=== PATIENT | female | born 1955 | race Caucasian/White ===

== ENCOUNTER 2016-10-15 18:51 | Inpatient (IN) | payer BC ==
[~2016-10-15] VITALS: Ht 172.7 cm; Wt 76.5 kg
[2016-10-15 10:45] VITALS: BP 131/81
[2016-10-15 19:17] LABS: Basophils # (auto) 0 uL; Basophils % (auto) 0.1 % (0.0-2.0); Eosinophils # (auto) 0.2 uL; Eosinophils % (auto) 2.5 % (0.0-7.0); Hemoglobin 13.4 g/dL (12.2-16.2); Lymphocytes # (auto) 1.2 uL; Lymphocytes % (auto) 14.9 % (10.0-50.0); Mean Corpuscular Hemoglobin 31.5 pg (28.0-32.0); Mean Corpuscular Hgb Conc. 34.4 g/dL (32.0-36.0); Mean Corpuscular Volume 91.6 fL (80.0-100.0); Mean Platelet Volume 9.6 fL (7.4-10.4); Monocytes # (auto) 0.8 uL; Monocytes % (auto) 9.5 % (0.0-12.0); Neutrophils # (auto) 5.8 uL; Platelet Count (auto) 257 10^3/uL (140-450); Red Cell Distribution Width 12.8 % (11.6-16.0); White Blood Cell 7.9 10^3/uL (4.4-10.8)
[2016-10-15 19:50] LABS: Albumin 3.7 g/dL (3.4-5.0); Alkaline Phosphatase 64 U/L (45-117); Anion Gap 8 (5-15); Aspartate Aminotransferase 18 U/L (15-37); BUN/Creatinine Ratio 23.5; Bilirubin, Total 0.4 mg/dL (0.2-1.0); Blood Urea Nitrogen 31 mg/dL (7-18); Calcium 9.1 mg/dL (8.5-10.1); Carbon Dioxide 30 mmol/L (21-32); Chloride 99 mmol/L (98-107); GFR African American 53 mL/min; GFR Non-African American 44 mL/min; Glucose 122 mg/dL (74-106); Magnesium 2.7 mg/dL (1.6-2.6); Sodium 137 mmol/L (136-145)
[2016-10-15] MEDS ORDERED: cloNIDine 0.2 mg/24hr 7DAY PATCH TD ONE (20:30)
[2016-10-15] MEDS ORDERED: MECLIZINE HCL 25 MG TAB PO ONE (20:45)
[2016-10-15] MEDS ORDERED: NITROGLYCERIN 0.4 MG SL TAB SL PRN (21:15)
[2016-10-15] MEDS ORDERED: MORPHINE SULF INJ 2 MG/ML SYRINGE 1ML IV PRN ×2 (21:15)
[2016-10-15] MEDS ORDERED: ONDANSETRON HCL 4 MG/2 ML VIAL IV PRN (21:15)
[2016-10-15] MEDS ORDERED: ACETAMINOPHEN 325 MG TAB PO PRN (21:15)
[2016-10-15] MEDS: SODIUM CHLORIDE 0.9% 1,000 ML IV SCH (21:44)
[2016-10-15 22:21] LABS: Urine Bilirubin Negative (Negative); Urine Color Yellow (Yellow); Urine Glucose Normal (Normal); Urine Hyaline Cast MOD /lpf (0 - 2); Urine Ketone Negative (Negative); Urine Mucus FEW (None Seen); Urine RBC 11 /hpf (0 - 4); Urine Squamous Epithelial Cell FEW /hpf (<5); Urine Urobilinogen Normal (Negative)
[2016-10-15 22:29] LABS: Urine Blood 1+ /uL (Negative); Urine Nitrite POSITIVE (Negative)
[2016-10-15 22:45] VITALS: BP 138/81
[2016-10-16] MEDS ORDERED: ASP81EC PO (00:03)
[2016-10-16] MEDS ORDERED: SIMV-8 PO (00:03)
[2016-10-16] MEDS ORDERED: METF-370 PO (00:03)
[2016-10-16] MEDS ORDERED: METO25TA5 PO (00:03)
[2016-10-16 05:00] VITALS: BP 128/70
[2016-10-16 07:09] LABS: Basophils # (auto) 0 uL; Basophils % (auto) 0.5 % (0.0-2.0); Eosinophils # (auto) 0.2 uL; Eosinophils % (auto) 3.1 % (0.0-7.0); Hemoglobin 12.9 g/dL (12.2-16.2); Lymphocytes # (auto) 1.6 uL; Mean Corpuscular Hemoglobin 31.7 pg (28.0-32.0); Mean Corpuscular Hgb Conc. 34.8 g/dL (32.0-36.0); Mean Corpuscular Volume 91.1 fL (80.0-100.0); Mean Platelet Volume 9.9 fL (7.4-10.4); Monocytes # (auto) 0.7 uL; Monocytes % (auto) 12.1 % (0.0-12.0); Neutrophils # (auto) 3.3 uL; Neutrophils % (auto) 56.3 % (37.0-80.0); Platelet Count (auto) 217 10^3/uL (140-450); Red Cell Distribution Width 12.8 % (11.6-16.0); White Blood Cell 5.9 10^3/uL (4.4-10.8)
[2016-10-16 09:00] VITALS: BP 136/61
[2016-10-16] MEDS ORDERED: BUPR-60 PO (10:32)
[2016-10-16] MEDS ORDERED: TRIATAB3 PO (10:32)
[2016-10-16] MEDS ORDERED: LOSA50TA6 PO (10:32)
[2016-10-16] MEDS ORDERED: CLOP75TA41 PO (10:32)
[2016-10-16 13:00] VITALS: BP 125/74
[2016-10-16] MEDS ORDERED: ASPirin 81 mg TAB PO ONE (13:00)
[2016-10-16] MEDS ORDERED: cefTRIAXone 1GM/50ML D5W 50 ML IV ONE (13:00)
[2016-10-16] MEDS ORDERED: CLOPIDOGREL BISULFATE 75 MG TAB PO ONE (13:00)
[2016-10-16] MEDS: METOPROLOL TARTRATE 25 MG TAB PO SCH ×2 (13:15→21:58)
[2016-10-16] MEDS: SODIUM CHLORIDE 0.9% 1,000 ML IV SCH (14:18)
[2016-10-16 17:00] VITALS: BP 135/63
[2016-10-16] MEDS: buPROPion HCL 75 MG TAB PO SCH (18:11)
[2016-10-16 20:00] VITALS: BP 137/67
[2016-10-16] MEDS: ATORVASTATIN 20 MG TAB PO SCH (21:57)
[2016-10-16 22:00] VITALS: BP 137/67
[2016-10-17 05:00] VITALS: BP 137/61
[2016-10-17 06:34] LABS: Basophils # (auto) 0 uL; Basophils % (auto) 0.7 % (0.0-2.0); Eosinophils # (auto) 0.3 uL; Eosinophils % (auto) 4.4 % (0.0-7.0); Hematocrit 36.2 % (36.0-46.0); Hemoglobin 12.3 g/dL (12.2-16.2); Lymphocytes # (auto) 1.8 uL; Lymphocytes % (auto) 29.5 % (10.0-50.0); Mean Corpuscular Hemoglobin 31.6 pg (28.0-32.0); Mean Corpuscular Hgb Conc. 34.1 g/dL (32.0-36.0); Mean Corpuscular Volume 92.8 fL (80.0-100.0); Mean Platelet Volume 10.2 fL (7.4-10.4); Monocytes # (auto) 0.5 uL; Monocytes % (auto) 8.5 % (0.0-12.0); Neutrophils # (auto) 3.5 uL; Neutrophils % (auto) 56.9 % (37.0-80.0); Platelet Count (auto) 214 10^3/uL (140-450); Red Cell Distribution Width 12.9 % (11.6-16.0); White Blood Cell 6.2 10^3/uL (4.4-10.8)
[2016-10-17] MEDS: buPROPion HCL 75 MG TAB PO SCH ×2 (06:35→18:18)
[2016-10-17] MEDS: SODIUM CHLORIDE 0.9% 1,000 ML IV SCH ×2 (06:38→23:27)
[2016-10-17 07:17] LABS: BUN/Creatinine Ratio 20.5; Calcium 9.6 mg/dL (8.5-10.1); Potassium 4.1 mmol/L (3.5-5.1)
[2016-10-17] MEDS ORDERED: ADENOSINE 62 MG in GIVE UN-DILUTED 0 ML IV ONE (08:15)
[2016-10-17 09:00] VITALS: BP 153/80
[2016-10-17] MEDS: cefTRIAXone 1GM/50ML D5W 50 ML IV SCH (10:21)
[2016-10-17] MEDS: ASPirin 81 mg TAB PO SCH (10:22)
[2016-10-17] MEDS: CLOPIDOGREL BISULFATE 75 MG TAB PO SCH (10:22)
[2016-10-17] MEDS: METOPROLOL TARTRATE 25 MG TAB PO SCH ×2 (10:22→22:01)
[2016-10-17 17:00] VITALS: BP 149/83
[2016-10-17 21:30] VITALS: BP 154/79
[2016-10-17] MEDS: ATORVASTATIN 20 MG TAB PO SCH (22:00)
[2016-10-18 05:00] VITALS: BP 167/74
[2016-10-18] MEDS: buPROPion HCL 75 MG TAB PO SCH (06:21)
[2016-10-18 06:38] LABS: BUN/Creatinine Ratio 20.2; Calcium 8.8 mg/dL (8.5-10.1); Potassium 3.9 mmol/L (3.5-5.1)
[2016-10-18 09:00] VITALS: BP 112/79
[2016-10-18] MEDS: cefTRIAXone 1GM/50ML D5W 50 ML IV SCH (10:15)
[2016-10-18] MEDS: METOPROLOL TARTRATE 25 MG TAB PO SCH (10:16)
[2016-10-18] MEDS: CLOPIDOGREL BISULFATE 75 MG TAB PO SCH (10:16)
[2016-10-18] MEDS: ASPirin 81 mg TAB PO SCH (10:16)
[2016-10-18 12:59] VITALS: BP 145/75
[2016-10-18 15:29] VITALS: BP 145/75
[2016-10-18] MEDS: SODIUM CHLORIDE 0.9% 1,000 ML IV SCH (15:54)
== END 2016-10-18 17:30 | disposition home or self-care (01) | DRG 641 ==
LOC: EDBD 18:51 → ER 18:57 → TELE 18:58 → TELE-WESTW 21:52
PROVIDERS: ADMIT Emergency Medicine; ATTEND Internal Medicine
DX: E86.0 Dehydration (principal); N39.0 Urinary tract infection, site not specified; E83.41 Hypermagnesemia; I25.10 Atherosclerotic heart disease of native coronary artery without angina pectoris; I95.9 Hypotension, unspecified; E78.00 Pure hypercholesterolemia, unspecified; B96.20 Unspecified Escherichia coli [E. coli] as the cause of diseases classified elsewhere; I10 Essential (primary) hypertension; E11.51 Type 2 diabetes mellitus with diabetic peripheral angiopathy without gangrene; Z77.22 Contact with and (suspected) exposure to environmental tobacco smoke (acute) (chronic); E78.5 Hyperlipidemia, unspecified; Z86.73 Personal history of transient ischemic attack (TIA), and cerebral infarction without residual deficits; Z80.0 Family history of malignant neoplasm of digestive organs; Z82.49 Family history of ischemic heart disease and other diseases of the circulatory system; Z98.51 Tubal ligation status; Z95.5 Presence of coronary angioplasty implant and graft
CPT/HCPCS: 36415; 70450; 71020; 78452; 80048; 80053; 81001; 83036; 83735; 84484; 85025; 87086; 87088; 87186; 93005; 93017; 93306; 94761; J0153; J0696

== ENCOUNTER 2017-10-09 14:02 | Inpatient (IN) | payer BC ==
[~2017-10-09] VITALS: Ht 172.7 cm; Wt 75.9 kg
[~2017-10-09 14:02] MED LIST: ASP81EC PO; BUPR-60 PO; CLOP75TA41 PO; LOSA50TA6 PO; METF-370 PO; METO25TA5 PO; SIMV-8 PO; TRIATAB3 PO
[2017-10-09 15:24] LABS: Basophils # (auto) 0.1 uL; Basophils % (auto) 0.6 % (0.0-2.0); Eosinophils # (auto) 0.1 uL; Eosinophils % (auto) 0.8 % (0.0-7.0); Hematocrit 42.9 % (36.0-46.0); Hemoglobin 14.7 g/dL (12.2-16.2); Lymphocytes # (auto) 1.3 uL; Lymphocytes % (auto) 9.2 % (10.0-50.0); Mean Corpuscular Hemoglobin 31.1 pg (28.0-32.0); Mean Corpuscular Hgb Conc. 34.2 g/dL (32.0-36.0); Mean Corpuscular Volume 90.7 fL (80.0-100.0); Monocytes # (auto) 0.9 uL; Monocytes % (auto) 6.5 % (0.0-12.0); Neutrophils # (auto) 11.8 uL; Neutrophils % (auto) 82.9 % (37.0-80.0); Nucleated Red Blood Cells % 0.1 %; Platelet Count (auto) 230 10^3/uL (140-450); Red Blood Cells 4.73 10^6/uL (4.0-5.20); Red Cell Distribution Width 13.1 % (11.8-14.3); White Blood Cell 14.2 10^3/uL (4.4-10.8)
[2017-10-09 15:47] LABS: Albumin 3.6 g/dL (3.4-5.0); BUN/Creatinine Ratio 16.9; Potassium 3.5 mmol/L (3.5-5.1); Total Protein 7.2 g/dL (6.4-8.2)
[2017-10-09] MEDS ORDERED: SODIUM CHLORIDE 0.9% 500 ML IVB ONE (16:04)
[2017-10-09] MEDS ORDERED: MORPHINE SULFATE 8mg/ml INJ SDV IV ONE (16:15)
[2017-10-09] MEDS ORDERED: ONDANSETRON HCL 4 MG/2 ML VIAL IV ONE (16:15)
[2017-10-09] MEDS ORDERED: MORPHINE SULF INJ 2 MG/ML SYRINGE 1ML IV ONE ×2 (18:15)
[2017-10-09] MEDS ORDERED: DEXTROSE (50%) 50ML SYRG IV PRN (19:00)
[2017-10-09] MEDS ORDERED: SODIUM CHLORIDE 0.9% 2,000 ML IV ONE (19:00)
[2017-10-09] MEDS ORDERED: ACETAMINOPHEN 325 MG TAB PO PRN (19:00)
[2017-10-09] MEDS ORDERED: cefTRIAXone 1GM/10ml IVPUSH 10 ML IV ONE (19:00)
[2017-10-09] MEDS ORDERED: TEMAZEPAM 15 MG CAP PO PRN (19:00)
[2017-10-09] MEDS ORDERED: ASPirin-EC 81 mg tab PO ONE (19:30)
[2017-10-09] MEDS: buPROPion HCL 75 MG TAB PO SCH (19:51)
[2017-10-09 20:00] VITALS: BP 145/79
[2017-10-09] MEDS: SODIUM CHLORIDE 0.9% 1,000 ML IV SCH (21:13)
[2017-10-09] MEDS: InsuLIN REG 1unit/0.01ml Soln (100units/ml) SC SCH (21:31)
[2017-10-09] MEDS: ACCU-CHEK COMFORT CURVE STRIP VI SCH (21:31)
[2017-10-09] MEDS: metroNIDAZOLE 500MG/100ML 100 ML IV SCH (21:31)
[2017-10-09] MEDS: FAMOTIDINE 20 MG TAB PO SCH (21:31)
[2017-10-09] MEDS: METOPROLOL TARTRATE 50 MG TAB PO SCH (21:31)
[2017-10-09] MEDS: ATORVASTATIN 20 MG TAB PO SCH (21:31)
[2017-10-09] MEDS: MORPHINE SULF INJ 2 MG/ML SYRINGE 1ML IV PRN (21:36)
[2017-10-09 22:00] VITALS: BP 145/79
[2017-10-09 23:05] LABS: Urine Bacteria FEW /hpf (None Seen); Urine Blood TRACE /uL (Negative); Urine Mucus FEW (None Seen); Urine Specific Gravity 1.009 (1.001-1.035); Urine WBC 1 /hpf (0 - 5)
[2017-10-10] MEDS: MORPHINE SULF INJ 2 MG/ML SYRINGE 1ML IV PRN (03:19)
[2017-10-10 05:00] VITALS: BP 118/56
[2017-10-10 05:48] LABS: Basophils # (auto) 0 uL; Basophils % (auto) 0.5 % (0.0-2.0); Eosinophils # (auto) 0.1 uL; Eosinophils % (auto) 1.7 % (0.0-7.0); Hematocrit 35.4 % (36.0-46.0); Hemoglobin 12.5 g/dL (12.2-16.2); Lymphocytes # (auto) 1.3 uL; Lymphocytes % (auto) 14.9 % (10.0-50.0); Mean Corpuscular Hemoglobin 32.1 pg (28.0-32.0); Mean Corpuscular Hgb Conc. 35.4 g/dL (32.0-36.0); Mean Corpuscular Volume 90.8 fL (80.0-100.0); Monocytes # (auto) 0.7 uL; Monocytes % (auto) 8.4 % (0.0-12.0); Neutrophils # (auto) 6.5 uL; Neutrophils % (auto) 74.5 % (37.0-80.0); Platelet Count (auto) 161 10^3/uL (140-450); Red Cell Distribution Width 13.2 % (11.8-14.3); White Blood Cell 8.8 10^3/uL (4.4-10.8)
[2017-10-10] MEDS: metroNIDAZOLE 500MG/100ML 100 ML IV SCH ×3 (05:55→21:41)
[2017-10-10] MEDS: SODIUM CHLORIDE 0.9% 1,000 ML IV SCH ×4 (05:55→23:45)
[2017-10-10 06:07] LABS: Albumin 2.8 g/dL (3.4-5.0); BUN/Creatinine Ratio 15.6; Calcium 7.9 mg/dL (8.5-10.1); Potassium 3.4 mmol/L (3.5-5.1)
[2017-10-10 06:10] LABS: Bilirubin, Total 0.6 mg/dL (0.2-1.0); Total Protein 5.8 g/dL (6.4-8.2)
[2017-10-10] MEDS: ACCU-CHEK COMFORT CURVE STRIP VI SCH ×4 (06:59→21:41)
[2017-10-10] MEDS: InsuLIN REG 1unit/0.01ml Soln (100units/ml) SC SCH ×4 (06:59→22:23)
[2017-10-10] MEDS: buPROPion HCL 75 MG TAB PO SCH ×2 (06:59→18:47)
[2017-10-10 08:00] VITALS: BP 138/52
[2017-10-10 08:30] VITALS: BP 134/79
[2017-10-10] MEDS: cefTRIAXone 1GM/10ml IVPUSH 10 ML IV SCH (08:45)
[2017-10-10] MEDS: FAMOTIDINE 20 MG TAB PO SCH ×2 (09:34→21:41)
[2017-10-10] MEDS: MULTIPLE VITAMIN TAB PO SCH (09:35)
[2017-10-10] MEDS: METOPROLOL TARTRATE 50 MG TAB PO SCH ×2 (09:35→21:41)
[2017-10-10] MEDS: LOSARTAN POTASSIUM 50 MG TAB PO SCH (09:35)
[2017-10-10] MEDS: ASPirin-EC 81 mg tab PO SCH (09:36)
[2017-10-10] MEDS: CLOPIDOGREL BISULFATE 75 MG TAB PO SCH (09:36)
[2017-10-10 12:30] VITALS: BP 102/55
[2017-10-10 17:55] VITALS: BP 129/74
[2017-10-10] MEDS: ATORVASTATIN 20 MG TAB PO SCH (21:41)
[2017-10-10] MEDS: HYDROcodone-ACET 5/325MG TAB PO PRN (22:26)
[2017-10-10 22:34] VITALS: BP 143/75
[2017-10-11] MEDS: SODIUM CHLORIDE 0.9% 1,000 ML IV SCH ×2 (05:06→12:45)
[2017-10-11 05:16] VITALS: BP 138/72
[2017-10-11] MEDS: metroNIDAZOLE 500MG/100ML 100 ML IV SCH ×3 (05:38→21:41)
[2017-10-11] MEDS: HYDROcodone-ACET 5/325MG TAB PO PRN ×3 (05:41→21:10)
[2017-10-11] MEDS: buPROPion HCL 75 MG TAB PO SCH ×2 (06:25→18:50)
[2017-10-11] MEDS: InsuLIN REG 1unit/0.01ml Soln (100units/ml) SC SCH ×4 (06:26→21:43)
[2017-10-11] MEDS: ACCU-CHEK COMFORT CURVE STRIP VI SCH ×4 (06:26→21:43)
[2017-10-11 06:46] LABS: Basophils # (auto) 0 uL; Basophils % (auto) 0.6 % (0.0-2.0); Eosinophils # (auto) 0.3 uL; Eosinophils % (auto) 3.8 % (0.0-7.0); Hematocrit 34.7 % (36.0-46.0); Hemoglobin 11.9 g/dL (12.2-16.2); Lymphocytes # (auto) 1.1 uL; Lymphocytes % (auto) 15.8 % (10.0-50.0); Mean Corpuscular Hemoglobin 31.6 pg (28.0-32.0); Mean Corpuscular Hgb Conc. 34.4 g/dL (32.0-36.0); Mean Corpuscular Volume 91.8 fL (80.0-100.0); Monocytes # (auto) 0.6 uL; Monocytes % (auto) 8.2 % (0.0-12.0); Neutrophils # (auto) 4.9 uL; Neutrophils % (auto) 71.6 % (37.0-80.0); Platelet Count (auto) 170 10^3/uL (140-450); Red Blood Cells 3.77 10^6/uL (4.0-5.20); Red Cell Distribution Width 13.6 % (11.8-14.3); White Blood Cell 6.9 10^3/uL (4.4-10.8)
[2017-10-11 07:13] LABS: BUN/Creatinine Ratio 11.2; Calcium 8.3 mg/dL (8.5-10.1); Magnesium 2.1 mg/dL (1.6-2.6); Potassium 3.7 mmol/L (3.5-5.1)
[2017-10-11 08:00] VITALS: BP 144/75
[2017-10-11 09:00] VITALS: BP 146/88
[2017-10-11] MEDS: FAMOTIDINE 20 MG TAB PO SCH ×2 (09:31→21:43)
[2017-10-11] MEDS: cefTRIAXone 1GM/10ml IVPUSH 10 ML IV SCH (09:31)
[2017-10-11] MEDS: ONDANSETRON HCL 4 MG/2 ML VIAL IV PRN (09:31)
[2017-10-11] MEDS: MULTIPLE VITAMIN TAB PO SCH (09:32)
[2017-10-11] MEDS: ASPirin-EC 81 mg tab PO SCH (09:32)
[2017-10-11] MEDS: LOSARTAN POTASSIUM 50 MG TAB PO SCH (09:32)
[2017-10-11] MEDS: CLOPIDOGREL BISULFATE 75 MG TAB PO SCH (09:32)
[2017-10-11] MEDS: METOPROLOL TARTRATE 50 MG TAB PO SCH ×2 (09:33→21:43)
[2017-10-11 12:00] VITALS: BP 157/73
[2017-10-11 16:54] VITALS: BP 141/69
[2017-10-11] MEDS: ATORVASTATIN 20 MG TAB PO SCH (21:42)
[2017-10-11 22:00] VITALS: BP_SYST 109; BP_SYST 166; BP_DIAS 59; BP_DIAS 76
[2017-10-12] MEDS: SODIUM CHLORIDE 0.9% 1,000 ML IV SCH ×2 (03:12→11:41)
[2017-10-12] MEDS: HYDROcodone-ACET 5/325MG TAB PO PRN ×2 (04:26→21:55)
[2017-10-12 05:00] VITALS: BP 173/84
[2017-10-12] MEDS ORDERED: cloNIDine HCL 0.1 MG TAB PO ONE (05:15)
[2017-10-12] MEDS: InsuLIN REG 1unit/0.01ml Soln (100units/ml) SC SCH ×4 (05:40→22:24)
[2017-10-12] MEDS: metroNIDAZOLE 500MG/100ML 100 ML IV SCH ×3 (05:40→22:00)
[2017-10-12] MEDS: buPROPion HCL 75 MG TAB PO SCH ×2 (05:40→18:31)
[2017-10-12] MEDS: ACCU-CHEK COMFORT CURVE STRIP VI SCH ×4 (05:40→22:25)
[2017-10-12 06:11] LABS: Basophils # (auto) 0 uL; Basophils % (auto) 0.4 % (0.0-2.0); Eosinophils # (auto) 0.3 uL; Eosinophils % (auto) 4.3 % (0.0-7.0); Hematocrit 33.2 % (36.0-46.0); Hemoglobin 11.8 g/dL (12.2-16.2); Mean Corpuscular Hemoglobin 32.4 pg (28.0-32.0); Mean Corpuscular Hgb Conc. 35.6 g/dL (32.0-36.0); Mean Corpuscular Volume 91.1 fL (80.0-100.0); Monocytes # (auto) 0.5 uL; Monocytes % (auto) 7.8 % (0.0-12.0); Neutrophils # (auto) 4.9 uL; Neutrophils % (auto) 72.5 % (37.0-80.0); Nucleated Red Blood Cells % 0.1 %; Platelet Count (auto) 179 10^3/uL (140-450); Red Blood Cells 3.64 10^6/uL (4.0-5.20); Red Cell Distribution Width 13.2 % (11.8-14.3); White Blood Cell 6.8 10^3/uL (4.4-10.8)
[2017-10-12 06:27] LABS: BUN/Creatinine Ratio 7.2; Potassium 3.5 mmol/L (3.5-5.1)
[2017-10-12 09:00] VITALS: BP 162/82
[2017-10-12] MEDS: cefTRIAXone 1GM/10ml IVPUSH 10 ML IV SCH (09:12)
[2017-10-12] MEDS: ASPirin-EC 81 mg tab PO SCH (09:13)
[2017-10-12] MEDS: MULTIPLE VITAMIN TAB PO SCH (09:13)
[2017-10-12] MEDS: FAMOTIDINE 20 MG TAB PO SCH ×2 (09:13→21:57)
[2017-10-12] MEDS: CLOPIDOGREL BISULFATE 75 MG TAB PO SCH (09:13)
[2017-10-12] MEDS: METOPROLOL TARTRATE 50 MG TAB PO SCH ×2 (09:13→21:56)
[2017-10-12] MEDS: LOSARTAN POTASSIUM 50 MG TAB PO SCH (09:14)
[2017-10-12] MEDS: ONDANSETRON HCL 4 MG/2 ML VIAL IV PRN (09:20)
[2017-10-12] MEDS ORDERED: hydrALAZINE HCL 20 MG/ML VL IV PRN (11:15)
[2017-10-12 13:00] VITALS: BP 138/68
[2017-10-12 16:45] VITALS: BP 122/62
[2017-10-12] MEDS: ATORVASTATIN 20 MG TAB PO SCH (21:59)
[2017-10-12 22:48] VITALS: BP 150/79
[2017-10-13] MEDS: SODIUM CHLORIDE 0.9% 1,000 ML IV SCH ×2 (03:55→20:35)
[2017-10-13 05:36] VITALS: BP 150/63
[2017-10-13] MEDS: metroNIDAZOLE 500MG/100ML 100 ML IV SCH ×3 (06:00→21:49)
[2017-10-13] MEDS: InsuLIN REG 1unit/0.01ml Soln (100units/ml) SC SCH ×5 (06:00→22:00)
[2017-10-13] MEDS: ACCU-CHEK COMFORT CURVE STRIP VI SCH ×4 (06:36→21:51)
[2017-10-13 06:55] LABS: Basophils # (auto) 0 uL; Basophils % (auto) 0.8 % (0.0-2.0); Eosinophils # (auto) 0.3 uL; Eosinophils % (auto) 5.3 % (0.0-7.0); Hematocrit 34.5 % (36.0-46.0); Hemoglobin 11.8 g/dL (12.2-16.2); Lymphocytes # (auto) 1.3 uL; Lymphocytes % (auto) 22.8 % (10.0-50.0); Mean Corpuscular Hemoglobin 31.3 pg (28.0-32.0); Mean Corpuscular Hgb Conc. 34.3 g/dL (32.0-36.0); Mean Corpuscular Volume 91.3 fL (80.0-100.0); Monocytes # (auto) 0.6 uL; Monocytes % (auto) 10.1 % (0.0-12.0); Neutrophils # (auto) 3.6 uL; Nucleated Red Blood Cells % 0.1 %; Platelet Count (auto) 213 10^3/uL (140-450); Red Blood Cells 3.78 10^6/uL (4.0-5.20); Red Cell Distribution Width 12.9 % (11.8-14.3); White Blood Cell 5.8 10^3/uL (4.4-10.8)
[2017-10-13] MEDS: buPROPion HCL 75 MG TAB PO SCH ×2 (07:00→18:07)
[2017-10-13 08:32] LABS: Calcium 8.3 mg/dL (8.5-10.1); Magnesium 1.9 mg/dL (1.6-2.6); Potassium 3.7 mmol/L (3.5-5.1)
[2017-10-13 08:41] LABS: BUN/Creatinine Ratio 10.5
[2017-10-13] MEDS: HYDROcodone-ACET 5/325MG TAB PO PRN ×3 (08:42→21:46)
[2017-10-13 09:30] VITALS: BP 152/70
[2017-10-13] MEDS: cefTRIAXone 1GM/10ml IVPUSH 10 ML IV SCH (09:40)
[2017-10-13] MEDS: MULTIPLE VITAMIN TAB PO SCH (09:41)
[2017-10-13] MEDS: FAMOTIDINE 20 MG TAB PO SCH ×2 (09:41→21:51)
[2017-10-13] MEDS: CLOPIDOGREL BISULFATE 75 MG TAB PO SCH (09:41)
[2017-10-13] MEDS: ASPirin-EC 81 mg tab PO SCH (09:41)
[2017-10-13] MEDS: LOSARTAN POTASSIUM 50 MG TAB PO SCH (09:41)
[2017-10-13] MEDS: METOPROLOL TARTRATE 50 MG TAB PO SCH ×2 (09:42→21:51)
[2017-10-13 12:34] VITALS: BP 149/68
[2017-10-13 16:58] VITALS: BP 162/73
[2017-10-13] MEDS: hydrALAZINE HCL 10 MG TAB PO PRN ×2 (18:08→21:48)
[2017-10-13] MEDS: ATORVASTATIN 20 MG TAB PO SCH (21:50)
[2017-10-13 22:00] VITALS: BP 177/89
[2017-10-14] MEDS ORDERED: cloNIDine HCL 0.1 MG TAB PO ONE (00:30)
[2017-10-14 05:00] VITALS: BP 145/81
[2017-10-14] MEDS: buPROPion HCL 75 MG TAB PO SCH ×2 (05:46→17:52)
[2017-10-14] MEDS: metroNIDAZOLE 500MG/100ML 100 ML IV SCH ×3 (05:46→22:04)
[2017-10-14] MEDS: InsuLIN REG 1unit/0.01ml Soln (100units/ml) SC SCH ×4 (07:00→22:06)
[2017-10-14] MEDS: ACCU-CHEK COMFORT CURVE STRIP VI SCH ×4 (07:00→22:06)
[2017-10-14 08:22] VITALS: BP 155/77
[2017-10-14] MEDS: cefTRIAXone 1GM/10ml IVPUSH 10 ML IV SCH (09:54)
[2017-10-14] MEDS: ASPirin-EC 81 mg tab PO SCH (09:55)
[2017-10-14] MEDS: MULTIPLE VITAMIN TAB PO SCH (09:55)
[2017-10-14] MEDS: HYDROcodone-ACET 5/325MG TAB PO PRN ×2 (09:55→21:23)
[2017-10-14] MEDS: METOPROLOL TARTRATE 50 MG TAB PO SCH ×2 (09:55→21:22)
[2017-10-14] MEDS: CLOPIDOGREL BISULFATE 75 MG TAB PO SCH (09:55)
[2017-10-14] MEDS: LOSARTAN POTASSIUM 50 MG TAB PO SCH (09:56)
[2017-10-14] MEDS: FAMOTIDINE 20 MG TAB PO SCH ×2 (09:56→21:22)
[2017-10-14] MEDS: TRIAMTERENE/HCTZ 75/50MG TABLET PO SCH (09:56)
[2017-10-14 12:42] VITALS: BP 159/86
[2017-10-14] MEDS: LOPERAMIDE HCL 2 MG CAP PO PRN ×2 (16:36→21:57)
[2017-10-14 17:06] VITALS: BP 151/70
[2017-10-14] MEDS: hydrALAZINE HCL 10 MG TAB PO PRN ×2 (17:52→21:24)
[2017-10-14] MEDS: ATORVASTATIN 20 MG TAB PO SCH (21:22)
[2017-10-14 22:00] VITALS: BP 171/76
[2017-10-15 05:00] VITALS: BP 162/79
[2017-10-15] MEDS: InsuLIN REG 1unit/0.01ml Soln (100units/ml) SC SCH ×2 (06:11→12:12)
[2017-10-15] MEDS: metroNIDAZOLE 500MG/100ML 100 ML IV SCH (06:11)
[2017-10-15] MEDS: buPROPion HCL 75 MG TAB PO SCH (06:11)
[2017-10-15] MEDS: HYDROcodone-ACET 5/325MG TAB PO PRN (06:30)
[2017-10-15] MEDS: ACCU-CHEK COMFORT CURVE STRIP VI SCH ×2 (06:30→12:12)
[2017-10-15 06:43] LABS: Basophils # (auto) 0 uL; Basophils % (auto) 0.6 % (0.0-2.0); Eosinophils # (auto) 0.3 uL; Eosinophils % (auto) 4.4 % (0.0-7.0); Hematocrit 37.1 % (36.0-46.0); Hemoglobin 12.8 g/dL (12.2-16.2); Lymphocytes # (auto) 1.4 uL; Lymphocytes % (auto) 18.5 % (10.0-50.0); Mean Corpuscular Hemoglobin 31.3 pg (28.0-32.0); Mean Corpuscular Hgb Conc. 34.5 g/dL (32.0-36.0); Mean Corpuscular Volume 90.8 fL (80.0-100.0); Monocytes # (auto) 0.7 uL; Monocytes % (auto) 8.9 % (0.0-12.0); Neutrophils # (auto) 5.2 uL; Neutrophils % (auto) 67.6 % (37.0-80.0); Nucleated Red Blood Cells % 0.1 %; Platelet Count (auto) 257 10^3/uL (140-450); Red Blood Cells 4.09 10^6/uL (4.0-5.20); Red Cell Distribution Width 13.2 % (11.8-14.3); White Blood Cell 7.6 10^3/uL (4.4-10.8)
[2017-10-15 06:51] LABS: BUN/Creatinine Ratio 15.6; Calcium 8.9 mg/dL (8.5-10.1); Potassium 4.4 mmol/L (3.5-5.1)
[2017-10-15] MEDS: ONDANSETRON HCL 4 MG/2 ML VIAL IV PRN (08:21)
[2017-10-15 09:00] VITALS: BP 156/72
[2017-10-15] MEDS: TRIAMTERENE/HCTZ 75/50MG TABLET PO SCH (10:02)
[2017-10-15] MEDS: ASPirin-EC 81 mg tab PO SCH (10:02)
[2017-10-15] MEDS: cefTRIAXone 1GM/10ml IVPUSH 10 ML IV SCH (10:02)
[2017-10-15] MEDS: METOPROLOL TARTRATE 50 MG TAB PO SCH (10:03)
[2017-10-15] MEDS: FAMOTIDINE 20 MG TAB PO SCH (10:03)
[2017-10-15] MEDS: LOSARTAN POTASSIUM 50 MG TAB PO SCH (10:03)
[2017-10-15] MEDS: CLOPIDOGREL BISULFATE 75 MG TAB PO SCH (10:03)
[2017-10-15] MEDS: MULTIPLE VITAMIN TAB PO SCH (10:03)
[2017-10-15 13:51] VITALS: BP 137/62
[2017-10-15] MEDS ORDERED: METR500T PO (14:57)
[2017-10-15] MEDS ORDERED: LEVO500T21 PO (14:57)
== END 2017-10-15 17:21 | disposition home or self-care (01) | DRG 391 ==
LOC: ER 14:02 → TELE 14:03 → TELE-WESTW 19:58 → WEST WING 10-12
PROVIDERS: ADMIT Internal Medicine; ATTEND Internal Medicine
DX: K52.9 Noninfective gastroenteritis and colitis, unspecified (principal); N17.0 Acute kidney failure with tubular necrosis; E87.1 Hypo-osmolality and hyponatremia; E11.21 Type 2 diabetes mellitus with diabetic nephropathy; I25.10 Atherosclerotic heart disease of native coronary artery without angina pectoris; E78.5 Hyperlipidemia, unspecified; Z77.22 Contact with and (suspected) exposure to environmental tobacco smoke (acute) (chronic); E86.0 Dehydration; N18.3 Chronic kidney disease, stage 3 (moderate); E11.65 Type 2 diabetes mellitus with hyperglycemia; K57.30 Diverticulosis of large intestine without perforation or abscess without bleeding; I70.8 Atherosclerosis of other arteries; I12.9 Hypertensive chronic kidney disease with stage 1 through stage 4 chronic kidney disease, or unspecified chronic kidney disease; Z95.5 Presence of coronary angioplasty implant and graft; Z86.73 Personal history of transient ischemic attack (TIA), and cerebral infarction without residual deficits; Z83.3 Family history of diabetes mellitus; Z80.0 Family history of malignant neoplasm of digestive organs; Z79.899 Other long term (current) drug therapy; Z98.51 Tubal ligation status
CPT/HCPCS: 36415; 74176; 80048; 80053; 81001; 82378; 82962; 83036; 83690; 83735; 84443; 85025; 87040; 87045; 87086; 87493; 87899; 93005; 94761; 96361; 96374; 96375; J1815; J2405; J3490

== ENCOUNTER 2019-03-12 11:04 | Emergency (ER) | payer BC ==
[~2019-03-12] VITALS: Ht 172.7 cm; Wt 73.5 kg
[~2019-03-12 11:04] MED LIST changes: +LEVO500T21 PO; -LOSA50TA6 PO; +METR500T PO
[2019-03-12] MEDS ORDERED: SODIUM CHLORIDE 0.9% 1,000 ML IVB ONE (11:58)
[2019-03-12] MEDS ORDERED: PROMETHAZINE HCL 25 MG/ML 1ML IV ONE (12:00)
[2019-03-12 12:11] LABS: Basophils # (auto) 0 uL; Basophils % (auto) 0.5 % (0.0-2.0); Eosinophils # (auto) 0.2 uL; Eosinophils % (auto) 4.6 % (0.0-7.0); Hematocrit 43.9 % (36.0-46.0); Lymphocytes # (auto) 0.6 uL; Lymphocytes % (auto) 13.8 % (10.0-50.0); Mean Corpuscular Hemoglobin 31.6 pg (28.0-32.0); Mean Corpuscular Hgb Conc. 34.1 g/dL (32.0-36.0); Mean Corpuscular Volume 92.5 fL (80.0-100.0); Monocytes # (auto) 0.5 uL; Monocytes % (auto) 10.3 % (0.0-12.0); Neutrophils # (auto) 3.3 uL; Neutrophils % (auto) 70.8 % (37.0-80.0); Nucleated Red Blood Cells % 0.4 %; Platelet Count (auto) 220 10^3/uL (140-450); Red Blood Cells 4.74 10^6/uL (4.0-5.20); White Blood Cell 4.7 10^3/uL (4.4-10.8)
[2019-03-12 12:32] LABS: Albumin 3.8 g/dL (3.4-5.0); Calcium 8.9 mg/dL (8.5-10.1); Magnesium 2.1 mg/dL (1.6-2.6); Potassium 3.9 mmol/L (3.5-5.1)
[2019-03-12 12:35] LABS: Bilirubin, Total 0.5 mg/dL (0.2-1.0); Total Protein 7.2 g/dL (6.4-8.2)
[2019-03-12 14:36] LABS: Urine Bacteria FEW /hpf (None Seen); Urine Blood Negative /uL (Negative); Urine Specific Gravity 1.004 (1.001-1.035); Urine WBC <1 /hpf (0 - 5)
[2019-03-12 14:47] VITALS: BP 165/51
== END 2019-03-12 15:10 | disposition home or self-care (01) ==
LOC: ER 11:08
DX: K52.9 Noninfective gastroenteritis and colitis, unspecified (principal); K57.30 Diverticulosis of large intestine without perforation or abscess without bleeding; I73.9 Peripheral vascular disease, unspecified; K90.49 Malabsorption due to intolerance, not elsewhere classified; E11.21 Type 2 diabetes mellitus with diabetic nephropathy; I10 Essential (primary) hypertension; E78.5 Hyperlipidemia, unspecified; Z86.73 Personal history of transient ischemic attack (TIA), and cerebral infarction without residual deficits; Z98.51 Tubal ligation status
CPT/HCPCS: 36415; 71046; 74176; 80053; 81001; 82962; 83690; 83735; 84443; 85025; 93005; 96361; 96374; 99284; J2550; J7030

== ENCOUNTER 2022-08-26 12:03 | Emergency (ER) | payer BC, MEDICARE ==
[~2022-08-26] VITALS: Ht 172.7 cm; Wt 77.6 kg
[~2022-08-26 12:03] MED LIST changes: -ASP81EC PO; +ASPI-394 PO; -CLOP75TA41 PO; +CLOP75TA70 PO; -LEVO500T21 PO; +LEVO500T31 PO
[2022-08-26] MEDS ORDERED: cloNIDine HCL 0.1 MG TAB PO ONE (12:30)
[2022-08-26 13:17] VITALS: BP 174/81
[2022-08-26] MEDS ORDERED: METO-462 PO (13:23)
[2022-08-26] MEDS ORDERED: METOPROLOL TARTRATE 50 MG TAB PO ONE (13:30)
== END 2022-08-26 13:53 | disposition home or self-care (01) ==
LOC: ER 12:03
DX: I10 Essential (primary) hypertension (principal); Z76.0 Encounter for issue of repeat prescription; I25.10 Atherosclerotic heart disease of native coronary artery without angina pectoris; F32.9 Major depressive disorder, single episode, unspecified; E11.9 Type 2 diabetes mellitus without complications; E78.5 Hyperlipidemia, unspecified; Z86.73 Personal history of transient ischemic attack (TIA), and cerebral infarction without residual deficits; Z77.22 Contact with and (suspected) exposure to environmental tobacco smoke (acute) (chronic)